=== PATIENT | female | born 1960 | race Caucasian/White ===

== ENCOUNTER 2020-10-31 08:56 | Day surgery (SDC) | payer OTHER ==
[~2020-10-31] VITALS: Ht 157.5 cm; Wt 66.0 kg
[~2020-10-31 08:56] MED LIST: CENTRUM SILVER1 EAC2 PO; Calcium + Vita1 EACH PO; LOSARTAN-HCTZ1 EACH PO
[2020-10-31] MEDS ORDERED: Calcium Acetat667 MG (09:16)
== END 2020-10-31 11:42 | disposition home or self-care (01) ==
LOC: ORSCSDS 08:56
PROVIDERS: Surgery
PROC: 0DBH8ZX Excision of Cecum, Via Natural or Artificial Opening Endoscopic, Diagnostic (ICD-10-PCS; principal; 2020-10-31 10:30)
DX: Z12.11 Encounter for screening for malignant neoplasm of colon (principal); D12.0 Benign neoplasm of cecum; I10 Essential (primary) hypertension; E78.5 Hyperlipidemia, unspecified; Z79.899 Other long term (current) drug therapy
CPT/HCPCS: 88305; J2704; J7120

== ENCOUNTER → 2021-02-25 | Outpatient (CLI) | payer OTHER ==
[~2021-02-25] MED LIST changes: +Calcium Acetat667 MG
== END | disposition home or self-care (01) ==
LOC: PLD 11:50 → LAB SHORT 11:50
DX: D22.5 Melanocytic nevi of trunk (principal)
CPT/HCPCS: 88305

== ENCOUNTER → 2022-04-20 | Outpatient (CLI) | payer OTHER | END | disposition home or self-care (01) | LOC: LAB SHORT 15:17 → PLD 15:17 | DX: C76.1 Malignant neoplasm of thorax (principal) | CPT/HCPCS: 88305 ==

== ENCOUNTER → 2022-06-22 | Outpatient (CLI) | payer OTHER | END | disposition home or self-care (01) | LOC: PLD 14:53 → LAB SHORT 14:53 | DX: D03.59 Melanoma in situ of other part of trunk (principal) | CPT/HCPCS: 88305 ==

== ENCOUNTER 2025-10-23 08:55 | Day surgery (SDC) | payer MEDICARE ==
[2025-10-23] VITALS (19 sets, daily range): BP systolic 102–174; BP diastolic 63–98
[~2025-10-23] VITALS: Ht 160 cm; Wt 67.7 kg
--- NOTE | 2025-10-23 09:44 | NUR ---
Patient confirms NPO status and agrees with scheduled surgery. Patient states colon prep results clear. Patient States Post-Procedure ride home has been arranged. Lungs clear T/O to Auscultation.
--- NOTE | 2025-10-23 10:14 | NUR ---
10/23/25 1014 Katelynn Lee CONFIRMED AND REVIEWED H&P, MEDCICATIONS, ALLERGIES, MEDICAL HISTORY, RESPIRATORY HISTORY, VITAL SIGNS, 3-LEAD EKG, CONSENTS, AND PHYSICIAN ORDERS. PATIENT CONFIRMS NPO STATUS AND AGREES WITH SCHEDULED PROCEDURE. MONITOR INTACT WITH CONTINUOUS PULSE OXIMETRY, CAPNOGRAPHY, 3-LEAD EKG, INTERMITTENT BP. SUPPLEMENTAL O2 TO BE TITRATED THROUGHOUT PROCEDURE TO MAINTAIN O2 SATURATION ABOVE 90%. PATIENT DETERMINED TO BE ASA APPROPRIATE FOR PROPOFOL SEDATION PRIOR TO START OF PROCEDURE BY DR. VARGAS.
--- NOTE | 2025-10-23 10:56 | NUR ---
Discharge instructions reviewed with patient. Patient verbalizes understanding. Copy given to patient to take home. Discharged via wheelchair to private car for ride home.
== END 2025-10-23 11:14 | disposition home or self-care (01) ==
LOC: ORSCMMR 08:55 → ORD 10:30 → ORSCMMR 11:14
PROVIDERS: Surgery
PROC: 0DBP8ZX Excision of Rectum, Via Natural or Artificial Opening Endoscopic, Diagnostic (ICD-10-PCS; principal; 2025-10-23 10:30)
PROC: 0DBM8ZX Excision of Descending Colon, Via Natural or Artificial Opening Endoscopic, Diagnostic (ICD-10-PCS; principal; 2025-10-23 10:30)
DX: Z12.11 Encounter for screening for malignant neoplasm of colon (principal); D12.4 Benign neoplasm of descending colon; K62.1 Rectal polyp; K57.30 Diverticulosis of large intestine without perforation or abscess without bleeding; Z86.0101 Personal history of adenomatous and serrated colon polyps; I10 Essential (primary) hypertension; E78.5 Hyperlipidemia, unspecified; Z79.899 Other long term (current) drug therapy
CPT/HCPCS: 88305; J2704; J7120